=== PATIENT | male | born 1965 | race Caucasian/White ===

== ENCOUNTER 2020-03-16 11:54 | Emergency (ER) | payer SELFPAY ==
[~2020-03-16] VITALS: Ht 180.3 cm; Wt 66.2 kg
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
[2020-03-16] MEDS ORDERED: fentaNYL INJECTION 100 MCG/2 ML AMP ONE (12:06)
[2020-03-16] MEDS ORDERED: FENT50VI18 IV (12:10)
--- NOTE | 2020-03-16 12:10 | NUR ---
RN to waiting room briefly to speak with pt's mother that needs an update and consoled. Update given and notified that RN needs to get back into pt's room for planned intubation.
[2020-03-16] MEDS ORDERED: fentaNYL INJECTION 100 MCG/2 ML AMP IVP ONE (12:15)
[2020-03-16] MEDS ORDERED: NS IV 1000 ML 1,000 ML IV STA (12:20)
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
[2020-03-16] MEDS ORDERED: ONDANSETRON 4 MG/2 ML (SDV) Z0FRAN IVP STA (12:27)
--- NOTE | 2020-03-16 12:27 | NUR ---
Pt receiving Fentanyl 100 mcg IV at this time for severe intractable pain ".
[2020-03-16] MEDS ORDERED: HYDROmorphone 2 MG/ML VIAL (DILAUDID) IV ONE (12:30)
[2020-03-16] MEDS ORDERED: TETANUS,DIPTH,PERTUSS P/F (BOOSTRIX) 0.5 ML VIAL IM ONE (12:30)
[2020-03-16 12:44] LABS: HEMOGLOBIN 14.2 G/DL (13.3-17.7); MEAN CORPUSCULAR HEMOGLOBIN 28 PG (25-34); MEAN CORPUSCULAR HGB CONC 33 G/DL (32-36); MEAN CORPUSCULAR VOLUME 83 FL (80-99); PLATELET COUNT 210 10^3/uL (130-400); WHITE BLOOD COUNT 11.5 10^3/uL (4.3-11.0)
[2020-03-16 12:45] LABS: EOSINOPHILS % (AUTO) 0 % (0-10); HEMATOCRIT 43 % (40-54); LYMPHOCYTES % (AUTO) 30 % (12-44); MEAN PLATELET VOLUME 10.5 FL (7.4-10.4); MONOCYTES % (AUTO) 8 % (0-12); NEUTROPHILS % (AUTO) 61 % (42-75)
--- NOTE | 2020-03-16 12:45 | NUR ---
Dr Nieto reports [facility] states that if patient is sent emergently to [facility], ER may delay the intubation with current patent airway.
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
[2020-03-16 12:46] LABS: BASOPHILS # (AUTO) 0.1 10^3/uL (0.0-0.1); BASOPHILS % (AUTO) 1 % (0-10); LYMPHOCYTES # (AUTO) 3.5 X 10^3 (1.0-4.0); MONOCYTES # (AUTO) 0.9 X 10^3 (0.0-1.0)
[2020-03-16] MEDS ORDERED: LORazepam INJ 2 MG/ML (ATIVAN) VIAL IVP STA (12:50)
[2020-03-16] MEDS ORDERED: HYDROmorphone 2 MG/ML VIAL (DILAUDID) IV STA (12:50)
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
[2020-03-16 12:51] LABS: CARBON DIOXIDE 24 MMOL/L (21-32); CHLORIDE 103 MMOL/L (98-107); POTASSIUM 3.9 MMOL/L (3.6-5.0); SODIUM 140 MMOL/L (135-145)
[2020-03-16 12:52] LABS: ALANINE AMINOTRANSFERASE 12 U/L (0-55); ALBUMIN 4.3 GM/DL (3.2-4.5); ALKALINE PHOSPHATASE 50 U/L (40-136); BILIRUBIN,TOTAL 0.3 MG/DL (0.1-1.0); BUN/CREATININE RATIO 10; CALCIUM 9.7 MG/DL (8.5-10.1); CREATININE SERUM 0.93 MG/DL (0.60-1.30); GFR ESTIMATED > 60; GLUCOSE 165 MG/DL (70-105); TOTAL PROTEIN 7.1 GM/DL (6.4-8.2)
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
[2020-03-16 13:20] VITALS: BP 142/99
--- NOTE | 2020-03-16 13:20 | NUR ---
Patient departing at this time via [facility] for transfer to [facility]. Dr Nieto reviewed protocols and meds of choice in route.
--- NOTE | 2020-03-16 13:27 | NUR ---
Called report to Lianne BARROW @ [facility] at this time as now available.
== END 2020-03-16 13:20 | disposition short-term general hospital (02) ==
LOC: EDUNIT# 11:54 → ER FS 11:56
DX: T23.332A Burn of third degree of multiple left fingers (nail), not including thumb, initial encounter (principal); T20.39XA Burn of third degree of multiple sites of head, face, and neck, initial encounter; T22.312A Burn of third degree of left forearm, initial encounter; T31.0 Burns involving less than 10% of body surface; X02.0XXA Exposure to flames in controlled fire in building or structure, initial encounter
CPT/HCPCS: 36415; 80053; 85025; 85610; 85730; 90715

== ENCOUNTER 2021-03-21 19:12 | Emergency (ER) | payer OTHER ==
[~2021-03-21] VITALS: Ht 177 cm; Wt 75.5 kg
[~2021-03-21 19:12] MED LIST: FENT50VI18 IV
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
[2021-03-21] MEDS ORDERED: IBUPROFEN 800 MG (MOTRIN) TAB PO STA (20:41)
[2021-03-21] MEDS ORDERED: RX-CYCLOBENZAPRINE 10 MG (FLEXERIL) TAB PPK#3 PO PRN (20:45)
[2021-03-21] MEDS ORDERED: CYCL10TA9 PO (20:48)
[2021-03-21] MEDS ORDERED: IBUP-1780 PO (20:48)
[2021-03-21] MEDS ORDERED: ACHD5005 PO (20:48)
[2021-03-21 20:55] VITALS: BP 147/80
== END 2021-03-21 20:55 | disposition home or self-care (01) ==
LOC: EDUNIT# 19:12 → ER FS 19:14
DX: S16.1XXA Strain of muscle, fascia and tendon at neck level, initial encounter (principal); G89.29 Other chronic pain; M54.9 Dorsalgia, unspecified; F17.210 Nicotine dependence, cigarettes, uncomplicated; V89.2XXA Person injured in unspecified motor-vehicle accident, traffic, initial encounter
CPT/HCPCS: 70450; 72125; 99283; L0150